=== PATIENT | female | born 1980 | race Caucasian/White ===

== ENCOUNTER 2019-02-17 09:45 | Emergency (ER) | payer BC ==
[2019-02-17 10:33] VITALS: BP 132/80
--- NOTE | 2019-02-17 10:53 | UC ---
[facility] HPI - HPI Summary HPI Summary: Patient is a 38-year-old female presenting with lower tooth pain 3 days. She has a history of cavities and abscesses and feels like this to this becoming infected. Notes that the tooth is been broken for a long time but recently broke more. Denies any drainage or bleeding. Denies fever, chills, nausea, vomiting. She is able to eat and drink normally. - History of Current Complaint Chief Complaint: UCDentalProblem Stated Complaint: DENTAL Hx Obtained From: Patient Hx Last Menstrual Period: mirena Onset/Duration: Gradual Onset, Lasting Days Pain Intensity: 8 Pain Scale Used: 0-10 Numeric - Allergies/Home Medications Allergies/Adverse Reactions: Allergies Allergy/AdvReac Type Severity Reaction Status Date / Time No Known Allergies Allergy Verified 02/17/19 10:34 Home Medications: Home Medications Cetirizine* [ZyrTEC 10 MG TAB*] 1 tab PO DAILY 02/17/19 [History Confirmed 02/17] PMH/Surg Hx/FS Hx/Imm Hx - Surgical History Surgical History: Yes Surgery Procedure, Year, and Place: Rt FEMUR - OPEN COMPOUND FX - W/ [facility] - Family History Known Family History: Positive: Non-Contributory - Social History Alcohol Use: Occasionally Substance Use Type: None Smoking Status (MU): Never Smoked Tobacco Review of Systems All Other Systems Reviewed And Are Negative: Yes Constitutional: Positive: Negative. Negative: Fever, Chills ENT: Positive: Dental Pain Respiratory: Positive: Negative Cardiovascular: Positive: Negative Gastrointestinal: Positive: Negative. Negative: Vomiting, Nausea Musculoskeletal: Positive: Negative. Negative: Arthralgia Neurological: Positive: Negative. Negative: Headache Physical Exam Triage Information Reviewed: Yes Appearance: Well-Appearing, No Pain Distress, Well-Nourished Vital Signs: Initial Vital Signs Temp 98.4 F 02/17/19 10:30 Pulse 76 02/17/19 10:30 Resp 16 02/17/19 10:30 BP 132/80 02/17/19 10:30 Pulse Ox 100 02/17/19 10:30 Vital Signs Reviewed: Yes Eyes: Positive: Conjunctiva Clear ENT: Positive: Hearing grossly normal, Pharynx normal, Dental tenderness, Uvula midline. Negative: Trismus, Muffled voice, Hoarse voice Dental: Positive: Percussion Tenderness @ - tooth #28, Gross Decay/Caries @ - throughout most teeth, Dental Fracture @ - tooth #28, Cellulitis @ - right lower gumline. Negative: Abscess @, Cervical Lymphadenopathy, Bleeding Neck exam: Normal Neck: Positive: Supple, Nontender, No Lymphadenopathy Respiratory Exam: Normal Respiratory: Positive: Lungs clear, Normal breath sounds, No respiratory distress Cardiovascular Exam: Normal Cardiovascular: Positive: RRR Neurological: Positive: Alert Psychological: Positive: Age Appropriate Behavior Dental Complaint Course/Dx - Course Course Of Treatment: No sign of dental abscess. I'm treating for dental infection with penicillin. Patient also requested Diflucan in case of yeast infection from antibiotics. The patient follow up with dentist as soon as possible for further evaluation and treatment. Instructed to return or go to the emergency room if symptoms worsen. Patient voiced understanding and agreed with the treatment plan. - Differential Dx/Diagnosis Provider Diagnosis: Infected dental caries, Tooth fracture Discharge ED - Sign-Out/Discharge Documenting (check all that apply): Patient Departure All imaging exams completed and their final reports reviewed: No Studies - Discharge Plan Condition: Stable Disposition: HOME Prescriptions: Fluconazole 150 MG TAB* [Diflucan 150 MG TAB*] 150 mg PO ONCE #1 tablet Penicillin VK 500 MG TAB(NF) [Penicillin VK 500 mg Tab] 500 mg PO TID #21 tab Patient Education Materials: Dental Abscess (ED), Toothache (ED) Referrals: Lorin Cleary MD [Primary Care Provider] - If Needed Additional Instructions: As discussed, take the antibiotic as prescribed for your dental infection. Warm salt water gargles may help alleviate your symptoms as well. You may use ibuprofen and tylenol as directed for pain and fever relief. It is important that you follow up with your dentist soon as possible for further evaluation and treatment of the tooth. Go to the emergency room if you experience fever greater than 102, severe pain, nausea, or vomiting. - Billing Disposition and Condition Condition: STABLE Disposition: Home - Attestation Statements Provider Attestation: I was available for consult. This patient was seen by the [facility]. The patient was not presented to, seen by, or examined by me. -Vignesh
== END 2019-02-17 11:02 | disposition home or self-care (01) ==
LOC: UCEAST 09:45
DX: S02.5XXA Fracture of tooth (traumatic), initial encounter for closed fracture (principal); K02.9 Dental caries, unspecified; X58.XXXA Exposure to other specified factors, initial encounter; Y92.9 Unspecified place or not applicable
CPT/HCPCS: 99212; G0463